=== PATIENT | male | born 1965 | race Caucasian/White ===

== ENCOUNTER 2021-08-03 09:48 | Outpatient (RCR) | payer OTHER, SELFPAY ==
[2021-08-03] MEDS: ACETAMINOPHEN 325 MG TABLET 650 MG PO (13:41)
[2021-08-03 13:42] VITALS: BP 126/65; PULSE 80; RESP 20; TEMP 35.6; O2SAT 100
[2021-08-03] MEDS: diphenhydrAMINE HCl CAP 25 MG CAPSULE PO (13:42)
[2021-08-03] MEDS: FAMOTIDINE 20 MG TABLET PO (13:42)
[2021-08-03 15:10] VITALS: BP 124/91
--- NOTE | 2021-08-04 10:06 | PC.NURSE ---
Called Mr Leo and he said he is doing great today. He has no other questions at this time.
== END 2021-08-03 17:00 ==
LOC: AMCINF 09:48
PROVIDERS: PCP Physician Assistant Medical; Visit Provider Internal Medicine Hematology & Oncology
DX: U07.1 COVID-19 (principal)
CPT/HCPCS: A9270; M0245; Q0245

== ENCOUNTER 2022-12-13 09:00 | Outpatient (CLI) | payer BC, SELFPAY ==
[2022-12-13 10:38] LABS: Kit Draw Collected
== END 2022-12-13 09:01 | disposition home or self-care (01) ==
LOC: ANHGOSHLAB 09:03
PROVIDERS: PCP Family Medicine; Visit Provider Nurse Practitioner Family
DX: Z00.00 Encounter for general adult medical examination without abnormal findings (principal); E78.2 Mixed hyperlipidemia; Z12.5 Encounter for screening for malignant neoplasm of prostate
CPT/HCPCS: 36415

== ENCOUNTER 2024-12-06 00:24 | Day surgery (SDC) | payer BC, SELFPAY ==
[2024-11-28 09:07] VITALS: BMI 24.4
[2024-12-06 08:05] VITALS: BP 126/95; PULSE 82; RESP 16; TEMP 36.2; O2SAT 100
[2024-12-06] MEDS: LACTATED RINGERS 1,000 ML 150 ML IV CONT (08:13)
--- NOTE | 2024-12-06 08:23 | P.PNAN_ITS ---
Anes - Initial Pre Proc Eval Procedure: Operation Date: 12/06/24 09:00 Proposed Procedures p Screening Colonoscopy - Yaniv Obrien MD Date/Time: 12/06/24 08:23 Surgeon: Yaniv Obrien MD Pre Op Diagnosis: screening colon Patient Data Age: 59 Gender: M Height: 1.78 m Weight: 76.5 kg Last Vital Signs Temp 36.2 C L 12/06/24 08:05 Pulse 82 12/06/24 08:05 Resp 16 12/06/24 08:05 BP 126/95 H 12/06/24 08:05 Pulse Ox 100 12/06/24 08:05 O2 Del Method Room Air 12/06/24 08:05 Allergies Allergy/AdvReac Type Severity Reaction Status Date / Time No Known Allergies Allergy Verified 12/06/24 08:03 Home Medications ?Medication ?Instructions ?Recorded ?Confirmed ?Type No Home Medications 12/06/24 12/06/24 History Patient hx anesthesia problems: none Family hx anesthesia problems: none Results Review: All pre-operative results and documents have been reviewed as part of the pre- operative evaluation. [facility] Past Medical History Medical History Skin abscess Normal colonoscopy (~09/30/16) Surgical History Surgical History History of appendectomy (~2003) History of vasectomy (~2008) Family History Family History Grandparent Family history of glaucoma Hypertension Family history of cardiovascular disease Cerebrovascular accident Father Family history of elevated blood lipids Family history of lung cancer Mother Family history of elevated blood lipids Colon polyp Myeloid dysplasia Other Family history of hypercholesterolemia Social History Social History Smoking status: Never smoker Alcohol intake: current Alcohol use details: 2 drinks a month Substance use: never Substance use type: does not use Lack of Transportation: No Lack of Food: Never True Current Housing: I Have Housing Concerned About Future Housing: No Difficulty Paying Gas/Electric Bills: No Difficulty Paying for Meds: No Currently Unemployed: No Education: Bachelor's Degree Difficulty w/ Childcare or Family Care: No Living arrangements: with family Spiritual care concerns: No Anes - Eval Final PreProcedure Day of Procedure 12/06/24 08:23 Patient weight: normal Heart: regular rate and rhythm Lungs: clear to auscultation Airway: Mallampati scale class II Neurological: alert and oriented Last oral intake: >/= 8 hours ASA classification: II Emergent: no Anesthetic plan: proceed Anesthesia type and monitoring: general GIVS and standard monitoring Results Review: All pre-operative results and documents have been reviewed as part of the pre- operative evaluation. Informed Consent: The patient's anesthetic plan and its attendant risks and benefits were discussed with the patient/family/POA. Questions were solicited and answers provided to the satisfaction of the patient/family/POA.
--- NOTE | 2024-12-06 08:36 | PM.IMHP ---
H&P: HPI History of Present Illness Date/Time: 12/06/24 08:36 Chief Complaint: screening colonoscopy Narrative: This is the patient's 3rd screening colonoscopy. There are no GI symptoms and there is no family history of colorectal cancer. Review of Systems Review of Systems: All systems reviewed & are unremarkable except as noted in HPI and below PMFSH Past Medical History Medical History Skin abscess Normal colonoscopy (~09/30/16) Surgical History Surgical History History of appendectomy (~2003) History of vasectomy (~2008) Family History Family History Grandparent Family history of glaucoma Hypertension Family history of cardiovascular disease Cerebrovascular accident Father Family history of elevated blood lipids Family history of lung cancer Mother Family history of elevated blood lipids Colon polyp Myeloid dysplasia Other Family history of hypercholesterolemia Social History Social History Smoking status: Never smoker Alcohol intake: current Alcohol use details: 2 drinks a month Substance use: never Substance use type: does not use Lack of Transportation: No Lack of Food: Never True Current Housing: I Have Housing Concerned About Future Housing: No Difficulty Paying Gas/Electric Bills: No Difficulty Paying for Meds: No Currently Unemployed: No Education: Bachelor's Degree Difficulty w/ Childcare or Family Care: No Living arrangements: with family Spiritual care concerns: No Meds Home Medications and Allergies Home Medications ?Medication ?Instructions ?Recorded ?Confirmed ?Type No Home Medications 12/06/24 12/06/24 History Allergies Allergy/AdvReac Type Severity Reaction Status Date / Time No Known Allergies Allergy Verified 12/06/24 08:03 Vital Signs Vital Signs - 24 hr 12/06/24 08:05 Temperature 97.2 F L Pulse Rate 82 Respiratory Rate 16 Blood Pressure 126/95 H Pulse Oximetry 100 Oxygen Delivery Room Air Exam Const: General: cooperative and healthy appearing Resp: Effort & Inspection: normal respiratory effort and able to speak in complete sentences Auscultation: clear to auscultation bilaterally Cardio: Rate: regular rate Rhythm: regular rhythm GI: Inspection: normal to inspection GI Palp: No No hepatosplenomegaly present Auscultation: normal bowel sounds Rectal Exam: deferred Skin: General skin exam: normal color Psych: Appearance: grossly normal Mental Status: mental status grossly normal Assessment and Plan Assessment and plan (1) Colon cancer screening: Code(s): Z12.11 - Encounter for screening for malignant neoplasm of colon Status: Acute Assessment and Plan: The patient is deemed a good candidate for the procedure. Consent signed. Will proceed.
[2024-12-06] MEDS: SIMETHICONE ORAL SUSPENSION 20 MG/0.3 ML 30 ML BOTTLE 0.6 ML IRRIGATION (08:46)
[2024-12-06 08:52] VITALS: BP 110/78; PULSE 78; RESP 16; O2SAT 96
[2024-12-06 09:02] VITALS: BP 114/71; PULSE 77; RESP 16; O2SAT 100
== END 2024-12-06 09:31 | disposition home or self-care (01) ==
PROVIDERS: PCP Family Medicine; Referring Provider Family Medicine; Visit Provider Internal Medicine Gastroenterology
PROC: 0DJD8ZZ Inspection of Lower Intestinal Tract, Via Natural or Artificial Opening Endoscopic (ICD-10-PCS; CPT 45378; principal; 2024-12-06 09:00)
DX: Z12.11 Encounter for screening for malignant neoplasm of colon (principal); Z98.890 Other specified postprocedural states; Z80.1 Family history of malignant neoplasm of trachea, bronchus and lung; Z83.719 Family history of colon polyps, unspecified; Z82.49 Family history of ischemic heart disease and other diseases of the circulatory system
CPT/HCPCS: 45378; J2003; J2704; J7120